=== PATIENT | male | born 1930 | race Caucasian/White ===

== ENCOUNTER → 2019-01-15 | Outpatient (CLI) | payer MEDICARE, BC ==
[2019-01-15 12:18] LABS: BASOPHILS PERCENT AUTO 1 % (0-2); EOSINOPHILS ABSOLUTE AUTO 1.33 K/mm3 (0.00-0.68); EOSINOPHILS PERCENT AUTO 12 % (0-6); Hematocrit 43.5 % (37.0-53.0); Hemoglobin 14.3 g/dL (13.5-17.5); IMMATURE GRAN ABSOLUTE AUTO 0.03 K/mm3 (0.00-0.10); IMMATURE GRAN PERCENT AUTO 0 % (0-1); LYMPHOCYTES ABSOLUTE AUTO 2.33 K/mm3 (0.84-5.20); LYMPHOCYTES PERCENT AUTO 20 % (21-46); MONOCYTES ABSOLUTE AUTO 1.09 K/mm3 (0.16-1.47); MONOCYTES PERCENT AUTO 10 % (4-13); Mean Corpuscular HGB 29.7 pg (26.0-34.0); Mean Corpuscular HGB Conc 32.9 g/dL (31.5-36.5); Mean Corpuscular Volume 90 fL (80-100); Mean Platelet Volume 9.3 fL (9.1-12.4); NEUTROPHILS ABSOLUTE AUTO 6.52 K/mm3 (1.96-9.15); NEUTROPHILS PERCENT AUTO 57 % (41-73); Platelet Count 297 K/mm3 (150-400); RDW Coefficient Variation 13.1 % (11.7-14.2); RDW Standard Deviation 42.6 fL (35.1-46.3); Red Blood Cell Count 4.82 M/mm3 (4.30-5.90)
[2019-01-15 12:34] LABS: Bun/Creatinine Ratio 13.5 (12.0-20.0); Calcium, Blood 9.3 mg/dL (8.5-10.1); Creatinine, Blood 1.41 mg/dL (0.60-1.20); Potassium, Blood 4.6 mmol/L (3.5-5.5); Thyroid Stimulating Hormone 2.694 uIU/mL (0.360-4.800); Troponin I 0.023 ng/mL (0.000-0.040)
== END | disposition home or self-care (01) ==
LOC: LAB EV 12:02 → LAB SHORT 12:02
PROVIDERS: Physician Assistant Surgical
DX: R06.00 Dyspnea, unspecified (principal); R53.83 Other fatigue; R05 Cough
CPT/HCPCS: 80048; 83880; 84443; 84484; 85025; 87070; 87205

== ENCOUNTER 2021-02-14 10:48 | Emergency (ER) | payer OTHER, BC ==
[~2021-02-14] VITALS: Ht 182.9 cm; Wt 92.5 kg
[2021-02-14 11:33] LABS: BASOPHILS ABSOLUTE AUTO 0.05 K/mm3 (0.00-0.23); BASOPHILS PERCENT AUTO 0 % (0-2); EOSINOPHILS ABSOLUTE AUTO 0.11 K/mm3 (0.00-0.68); EOSINOPHILS PERCENT AUTO 1 % (0-6); Hematocrit 36.4 % (37.0-53.0); Hemoglobin 12.1 g/dL (13.5-17.5); IMMATURE GRAN ABSOLUTE AUTO 0.07 K/mm3 (0.00-0.10); IMMATURE GRAN PERCENT AUTO 1 % (0-1); LYMPHOCYTES ABSOLUTE AUTO 0.99 K/mm3 (0.84-5.20); LYMPHOCYTES PERCENT AUTO 9 % (21-46); MONOCYTES ABSOLUTE AUTO 1.04 K/mm3 (0.16-1.47); MONOCYTES PERCENT AUTO 9 % (4-13); Mean Corpuscular HGB 30.3 pg (26.0-34.0); Mean Corpuscular HGB Conc 33.2 g/dL (31.5-36.5); Mean Corpuscular Volume 91 fL (80-100); Mean Platelet Volume 9.4 fL (9.1-12.4); NEUTROPHILS ABSOLUTE AUTO 9.19 K/mm3 (1.96-9.15); NEUTROPHILS PERCENT AUTO 80 % (41-73); Platelet Count 223 K/mm3 (150-400); RDW Coefficient Variation 12.9 % (11.7-14.2); RDW Standard Deviation 42.5 fL (35.1-46.3); White Blood Cell Count 11.45 K/mm3 (4.00-11.30)
[2021-02-14] MEDS ORDERED: LANOXIN125 MCG PO (11:43)
[2021-02-14] MEDS ORDERED: L-ARGININE500 MG PO (11:49)
[2021-02-14] MEDS ORDERED: VIT1CAPS12 PO (11:49)
[2021-02-14] MEDS ORDERED: DAILY-VITE1 EAC1 PO (11:50)
[2021-02-14] MEDS ORDERED: VITAMIN D5000 UNIT PO (11:50)
[2021-02-14] MEDS ORDERED: GABA100 PO (11:51)
[2021-02-14] MEDS ORDERED: PROAIR DIGIHAL90 MCG INH (11:52)
[2021-02-14] MEDS ORDERED: ANORO ELLIPTA1 EACH INH (11:53)
[2021-02-14] MEDS ORDERED: IPRAT-ALBUT 0.5-3 ML INH (11:53)
[2021-02-14 11:58] LABS: Alanine Aminotransfer (ALT/SGP 21 U/L (12-78); Albumin, Blood 2.8 g/dL (3.4-5.0); Albumin/Globulin Ratio 0.7 (0.8-1.8); Alk Phos 71 U/L (50-136); Anion Gap 4 mmol/L (6-16); Aspartate Aminotrans (AST/SGOT 24 U/L (12-37); Bilirubin, Total 0.6 mg/dL (0.1-1.0); Blood Urea Nitrogen 28 mg/dL (8-24); CO2, Blood 24 mmol/L (21-32); Calcium, Blood 8.8 mg/dL (8.5-10.1); Chloride, Blood 109 mmol/L (98-108); Creatinine, Blood 1.47 mg/dL (0.60-1.20); Globulin, Blood 4.3 g/dL (2.2-4.0); Glomerular Filtration Rate 45 (60-); Glucose, Blood 136 mg/dL (70-99); Potassium, Blood 3.9 mmol/L (3.5-5.5); Sodium, Blood 137 mmol/L (136-145); Total Protein, Blood 7.1 g/dL (6.4-8.2); Troponin I <0.015 ng/mL (0.000-0.040)
[2021-02-14] MEDS ORDERED: LIOT5 PO (12:08)
[2021-02-14] MEDS ORDERED: EUTHYROX88 MCG PO (12:09)
[2021-02-14] MEDS ORDERED: CARV6.25 PO (12:09)
[2021-02-14] MEDS ORDERED: ELIQUIS5 M2 PO (12:10)
[2021-02-14] MEDS ORDERED: ARMOUR THYROID120 M1 PO (12:10)
[2021-02-14] MEDS ORDERED: Flonase 0.05% N16 GM (12:11)
[2021-02-14] MEDS ORDERED: CLOBETASOL EMOL15 G1 TOP (12:11)
[2021-02-14] MEDS ORDERED: DEXA2 PO (12:18)
== END 2021-02-14 14:05 | disposition home or self-care (01) ==
LOC: ER 10:48
PROVIDERS: Physician Assistant
DX: U07.1 COVID-19 (principal); J12.82 Pneumonia due to coronavirus disease 2019; J43.9 Emphysema, unspecified; I10 Essential (primary) hypertension; Z86.16 Personal history of COVID-19; Z79.899 Other long term (current) drug therapy; Z79.01 Long term (current) use of anticoagulants
CPT/HCPCS: 36415; 71045; 80053; 84484; 85025; 93005; 93010; 96374; 96375; 99285-25; J1100; J1200; M0243; Q0243

== ENCOUNTER 2022-07-17 17:52 | Inpatient (IN) | payer OTHER, BC ==
[~2022-07-17] VITALS: Ht 180.3 cm; Wt 82.4 kg
[~2022-07-17 17:52] MED LIST: ACET325 PO; ANORO ELLIPTA1 EACH INH; ARMOUR THYROID120 M1 PO; CARV6.25 PO; CEFD300 PO; CLOBETASOL EMOL15 G1 TOP; DAILY-VITE1 EAC1 PO; DECADRON6 M1 PO; DEXA2 PO; ELIQUIS5 M2 PO; EUTHYROX88 MCG PO; Flonase 0.05% N16 GM; GABA100 PO; IPRAT-ALBUT 0.5-3 ML INH; L-ARGININE500 MG PO; LANOXIN125 MCG PO; LIOT5 PO; OCUVITE BLUE L1 EACH PO; PROAIR DIGIHAL90 MCG INH; TAMS.4ER PO; VIT1CAPS12 PO; VITAMIN D5000 UNIT PO
[2022-07-17 18:50] LABS: BASOPHILS ABSOLUTE AUTO 0.02 K/mm3 (0.00-0.23); BASOPHILS PERCENT AUTO 0 % (0-2); EOSINOPHILS ABSOLUTE AUTO 0.07 K/mm3 (0.00-0.68); EOSINOPHILS PERCENT AUTO 0 % (0-6); Hematocrit 44.3 % (37.0-53.0); Hemoglobin 15.1 g/dL (13.5-17.5); IMMATURE GRAN ABSOLUTE AUTO 0.12 K/mm3 (0.00-0.10); IMMATURE GRAN PERCENT AUTO 1 % (0-1); LYMPHOCYTES ABSOLUTE AUTO 0.99 K/mm3 (0.84-5.20); LYMPHOCYTES PERCENT AUTO 6 % (21-46); MONOCYTES ABSOLUTE AUTO 0.67 K/mm3 (0.16-1.47); MONOCYTES PERCENT AUTO 4 % (4-13); Mean Corpuscular HGB 30.1 pg (26.0-34.0); Mean Corpuscular HGB Conc 34.1 g/dL (31.5-36.5); Mean Corpuscular Volume 88 fL (80-100); Mean Platelet Volume 9.7 fL (9.1-12.4); NEUTROPHILS ABSOLUTE AUTO 13.86 K/mm3 (1.96-9.15); NEUTROPHILS PERCENT AUTO 88 % (41-73); Platelet Count 302 K/mm3 (150-400); RDW Coefficient Variation 13.2 % (11.7-14.2); RDW Standard Deviation 42.9 fL (35.1-46.3); Red Blood Cell Count 5.02 M/mm3 (4.30-5.90); White Blood Cell Count 15.73 K/mm3 (4.00-11.30)
[2022-07-17 19:10] LABS: Albumin, Blood 2.6 g/dL (3.4-5.0); Albumin/Globulin Ratio 0.7 (0.8-1.8); Bilirubin, Total 0.8 mg/dL (0.1-1.0); Bun/Creatinine Ratio 32.9 (12.0-20.0); Calcium, Blood 14.3 mg/dL (8.5-10.1); Creatinine, Blood 1.67 mg/dL (0.60-1.20); Globulin, Blood 3.5 g/dL (2.2-4.0); Potassium, Blood 3.8 mmol/L (3.5-5.5); Total Protein, Blood 6.1 g/dL (6.4-8.2)
[2022-07-17 21:58] LABS: Source, Urine Clean Catch
[2022-07-17 22:02] LABS: Appearance, Urine Clear (Clear); Bilirubin, Urine Neg (Neg); Blood, Urine Neg (Neg); Color, Urine Yellow (P-Yellow); Glucose Qualitative, Urine Neg (Neg); Ketones, Urine Neg (Neg); Leukocyte Esterase, Urine Neg (Neg); Nitrite, Urine Neg (Neg); Protein, Urine 1+ (Neg); Urobilinogen, Urine NORM (Normal)
[2022-07-17 23:05] LABS: Influenza A, PCR NEGATIVE (NEGATIVE); Influenza B, PCR NEGATIVE (NEGATIVE); Resp Syncytial Virus, PCR NEGATIVE (NEGATIVE)
[2022-07-17 23:11] LABS: SARS-Cov-2 (COVID-19) PCR, MMC POSITIVE (NEGATIVE)
[2022-07-17 23:54] LABS: Anti-Xa UFH, PHA Monitoring 0.26 IU/mL; International Normalized Ratio 1.09; Prothrombin Time Results 11.4 Sec (9.7-11.5)
--- NOTE | 2022-07-18 05:41 | NUR ---
RECIEVED PATIENT FROM ED, ALERT AND ORIENTED X4, WITHDRAWN AND STATES HE JUSTS WANTS ALL OF THIS TO BE OVER, AND WANT TO BE WITH HIS IN HEAVEN. THIS DIRECTOR FOOD SAFETY ATTEMPTED TO DISCUSS HIS CODE STATUS, PATIENT STATES "TALK TO MY DAUGHTER, YOU DO WHAT YOU NEED TO DO." RECIEVED MULTI CALLS FROM [facility] RE TWO 2.5 SEC PAUSES, BRADYCARDIA, AND AFIB. PER MD ORDER, PATIENT TRANSFERED TO PCU. SMALL SKIN TEARS NOTED ON COCCYX AND UNDER L BUTTOCKS. LUNGS ARE DIM, CRACKLES TO R SIDE. EDEMA TO BLE. HEPDRIP AND NS INFUSING ON TRANSFER. REFUSED CPAP. NO OTHER ISSUES TO REPORT.
[2022-07-18 06:02] LABS: Digoxin (Lanoxin) 0.65 ug/mL (0.80-2.00)
[2022-07-18 06:03] LABS: Anion Gap 2 mmol/L (6-16); Blood Urea Nitrogen 54 mg/dL (8-24); Bun/Creatinine Ratio 34.8 (12.0-20.0); CO2, Blood 33 mmol/L (21-32); Chloride, Blood 107 mmol/L (98-108); Creatinine, Blood 1.55 mg/dL (0.60-1.20); Glomerular Filtration Rate 43 (60-); Glucose, Blood 103 mg/dL (70-99); Sodium, Blood 142 mmol/L (136-145)
--- NOTE | 2022-07-18 06:05 | NUR ---
0500-PT TRANSFERRED FROM [facility] FLR, LETHARGIC BUT ANSWERES APPROPRIATELY AND FOLLOWS COMMANDS, AFIB ON TELE 30'S-60'S, AFEBRILE, RA, PT HAVING SHORT PERIODS OF APNEA WHILE MAINTAINING SATS, STATES HE DOESN'T KNOW WHEN QUESTIONED ABOUT HOME CPAP, DR MURRAY CALLED AND DIG LEVEL ORDERED 0547-B/P SOFT SYS IN 80'S, MAP 64, FREQUENT DROP'S IN HR TO THE 30'S, 0.5 OF ATROPINE GIVEN 0600-B/P 80/44, DR MURRAY NOTIFIED, 500 CC BOLUS INITIATED
[2022-07-18] MEDS ORDERED: DELTASONE20 MG PO (09:43)
[2022-07-18] MEDS ORDERED: DULO30 PO (09:44)
--- NOTE | 2022-07-18 14:48 | NUR ---
REPORT GIVEN TO JENNIFER PARRA. PT CODE STATUS CHANGED TO DNR PER PALLIATIVE CARE NURSE, COPY OF ADVANCE DIRECTIVE IN THE CHART, DAUGHTER LADAN WAS INFORMED WELL, GRANDSON AND FIANCE AT THE BEDSIDE AWARE OF THE PLAN WELL. FAMILY WANTS TO WAIT TIL WEDNESDAY TO SEE IF PT'S IMPROVE THEN CONSIDER TRANSITIONING PT TO HOSPICE. PT ALERT AND ORIENTED X3, HAS SOME CONFUSION BUT ANSWERS QUESTIONS WITHOUT DIFFICULTY, PT INCONTINENT OF BOWEL AND BLADDER, RECEIVED A BED BATH THIS MORNING, REPOSITIONED Q2 HRS. VITALS HRR AFIB 60-70'S, SBP 110-120'S, SATS ABOVE 93% ON RA, AFEBRILE. PT DENIES ANY PAIN BUT COMPLAINS OF WEAKNESS, PT/OT ORDERED. PT TOLERATING PO FOOD AND FLUIDS, HAS COUGHING EPISODES IF PT USES STRAWS PT STATED HE DOESNT LIKE COLD WATER DUE TO SORE THROAT. INSTRUCTED PT TO TAKE SMALL SIPS OF WARM WATER WITHOUT STRAW. PT AGREED. HEPARIN GTT NOW RUNNING AT 15U/KG/HR, NS AT 125MLS/HR. NO OTHER ISSUES ENCOUNTERED AT THIS TIME. WILL MONITOR
--- NOTE | 2022-07-18 15:57 | NUR ---
Met with nursing and pt. He is alert but slow able to express some needs. Put his glasses on and put tv on for him. Review of his advance directive pt wants treatment just no life support. Spoke with daughter who is ill with covid. She relays it is getting harder to care for him and his situation is becoming unsafe. We reviewed his va benefits. Advised her I will update care management assistant on his needs. They are hoping to get him to rehab and if he does not do well may consider hospice. Review this plan iwth grand son and DNR. Will follow up.
--- NOTE | 2022-07-18 18:12 | NUR ---
SHIFT SUMMARY ASSUMED CARE ARPOX 1500. PT RESTING QUIETLY IN BED, FAMILY AT BEDSIDE. PT HAS BECOME MORE CONFUSED THE EVENING PROGRESSED, NEEDS FREQUENT REMINDERS NOT TO PULL ON LINES/WIRES. NO ACUTE CHANGES NOTED. BED ALARM ON FOR SAFETY, CALL LIGHT IN REACH, WILL CONTINUE TO MONITOR AND GIVE REPORT TO NOC SHIFT RN.
[2022-07-19 06:08] LABS: BASOPHILS ABSOLUTE AUTO 0.02 K/mm3 (0.00-0.23); BASOPHILS PERCENT AUTO 0 % (0-2); EOSINOPHILS ABSOLUTE AUTO 0.35 K/mm3 (0.00-0.68); EOSINOPHILS PERCENT AUTO 2 % (0-6); Hematocrit 42.9 % (37.0-53.0); IMMATURE GRAN ABSOLUTE AUTO 0.11 K/mm3 (0.00-0.10); IMMATURE GRAN PERCENT AUTO 1 % (0-1); LYMPHOCYTES ABSOLUTE AUTO 1.03 K/mm3 (0.84-5.20); LYMPHOCYTES PERCENT AUTO 7 % (21-46); MONOCYTES ABSOLUTE AUTO 0.71 K/mm3 (0.16-1.47); MONOCYTES PERCENT AUTO 5 % (4-13); Mean Corpuscular HGB 30.4 pg (26.0-34.0); Mean Corpuscular Volume 87 fL (80-100); Mean Platelet Volume 9.5 fL (9.1-12.4); NEUTROPHILS PERCENT AUTO 86 % (41-73); Platelet Count 293 K/mm3 (150-400); RDW Coefficient Variation 13.2 % (11.7-14.2); RDW Standard Deviation 41.8 fL (35.1-46.3); Red Blood Cell Count 4.93 M/mm3 (4.30-5.90); White Blood Cell Count 15.32 K/mm3 (4.00-11.30)
--- NOTE | 2022-07-19 06:23 | NUR ---
SHIFT SUMMARY PT ORIENTED TO SELF, PLACE, AND PERSON; UNABLE TO RECALL SITUATION, DATE/TIME. PT MUCH MORE ALERT AND INTERACTIVE, AT TIMES SPEECH IS DIFFICULT TO UNDERSTAND D/T MUMBLING. BUT PT IS ANSWERING QUESTIONS MOSTLY APPROPRIATE. VSS THROUGHOUT SHIFT; ALTHOUGH SBP SOFT IN 100'S, MAP >65. HR REMAINS A-FIB IN 60'S. PT ON 1 - 2 PRN; PT ON 2 L WHILE SLEEPING. PT DID HAVE ONE INCIDENT OF PULLING OFF TELEMETRY STICKERS, SPO2 PROBE AND PULLED AN IV OUT. PT WAS ABLE TO BE REORIENTED AND SINCE THAT EVENT DID NOT PULL AT ANYTHING ELSE THROUGHOUT THE NIGHT. PT USED URINAL X2 AND WAS ABLE TO VERBALIZE HIS NEED TO VOID. HEPARIN GTT INFUSING PER EMAR. CALL LIGHT IN REACH. WILL UPDATE ONCOMING RN
[2022-07-19 06:25] LABS: Albumin, Blood 2.5 g/dL (3.4-5.0); Anion Gap 3 mmol/L (6-16); Blood Urea Nitrogen 42 mg/dL (8-24); Bun/Creatinine Ratio 30.4 (12.0-20.0); CO2, Blood 31 mmol/L (21-32); Calcium, Blood 13.4 mg/dL (8.5-10.1); Chloride, Blood 110 mmol/L (98-108); Creatinine, Blood 1.38 mg/dL (0.60-1.20); Glomerular Filtration Rate 49 (60-); Glucose, Blood 90 mg/dL (70-99); Phosphorus, Blood 3.1 mg/dL (2.5-4.9); Potassium, Blood 3.3 mmol/L (3.5-5.5); Sodium, Blood 144 mmol/L (136-145)
[2022-07-19 10:16] LABS: Free Thyroxine 1.15 ng/dL (0.70-1.60); Triiodothyronine, Free 1.28 pg/mL (2.18-3.98)
--- NOTE | 2022-07-19 14:15 | NUR ---
PT BLOOD PRESSURE HAS BEEN LOW SINCE THIS MORNING VERIFIED BY MANUAL BP SBP 70-90'S MAP <65, PT WAS GIVEN BOLUS 500MLS WITH NO IMPROVEMENT N BLOOD PRESSURE THEN ANOTHER BOLUS AT AROUND 11AM WITH ONE DOSE OF PO MIDODRINE STILL WITH NO IMPROVEMENT. HRR AFIB 60-80'S,SATS ABOVE 90% ON 2L OF O2, AFEBRILE. PT REMAINS ALERT AND ORIENTED X3, LETHARGIC. MUMBLES WHEN TALKING UPON WAKING UP CAN ANSWER QUESTIONS APPROPRIATELY BUT HAS EPISODES OF DELIRIUM PT WILL RAISE HAND UP IF GRABBING SOMETHING IN THE AIR, PER GRANDSON HAS SOME HALLUCINATION WELL LIKE SEEING SOMEBODY IN THE ROOM. ELHAM MANAGER LICENSING NURSE HAD CONVERSATION WITH THE GRANDSON, ALSO DAUGHTER CAME IN THIS RN DISCUSS PT'S CURRENT SITUATION AND GIVE UPDATES. FAMILY AGREED TO TAKE PT TO ICU FOR PRESSORS. BLOOD WORK FOR SEPSIS AND CHEST XRAY DONE PRIOR TO SENDING PT TO ICU. ALL BELONGINGS SENT WITH THE PT
--- NOTE | 2022-07-19 14:24 | NUR ---
PT ADMITTED TO ICU FROM PCU AT 1410 FOR HYPOTENSION. PT AWAKE, DROWSY. DENIES C/O PAIN/SOB. SATS 98% ON 2L O2 VIA N/C. PT HAS URGENCY TO VOID BUT IS UNABLE TO DO SO, AWAITING BLADDER SCANNER. PT HYPOTENSIVE W MAP >65, LEVOPHED STARTED AT 2MCG. HEPARIN GTT PLACED ON HOLD AT 1410 PER PHARMACY. TO BE RESTARTED AT 1510 AT 12UNITS.
[2022-07-19 15:34] LABS: Source, Urine Foley catheter
[2022-07-19 15:37] LABS: Appearance, Urine Clear (Clear); Bilirubin, Urine Neg (Neg); Blood, Urine 2+ (Neg); Glucose Qualitative, Urine Neg (Neg); Ketones, Urine Neg (Neg); Leukocyte Esterase, Urine Neg (Neg); Nitrite, Urine Neg (Neg); Protein, Urine Neg (Neg); Specific Gravity, Urine 1.015 (1.003-1.022); Urobilinogen, Urine NORM (Normal)
[2022-07-19 15:43] LABS: Color, Urine Pale Yellow (P-Yellow)
[2022-07-19 15:47] LABS: Bacteria Few /hpf; Squamous Epithelial Cells Rare /hpf (Few); White Blood Cells, Urine 0-2 /hpf (0-5)
--- NOTE | 2022-07-19 17:26 | NUR ---
PT WOKE UP VERY CONFUSED AND AFRAID/ANXIOUS. PT THOUGHT HE WAS IN A GARAGE AND DIDNT REMEMBER TRANSFERING TO ICU. PT REASSURED, WARM BLANKETS GIVEN. 16F SKINNER TEMP CATH WAS PLACED ON ADMIT FOR RETENTION. PICC PLACED TO [facility]; PT'S DAUGHTER CONSENTED. LEVOPHED IS DOWN TO 1MCG. HEPARIN AT 12UNITS. DR WELLS CALLED AND UPDATED SHORTLY AFTER ADMIT. DR RIZVI CALLED CALLED AT 1600 TO GIVE UPDATE, ORDERS TO INCREASE NS TO 150CC/HR AND HOLD TONIGHTS LASIX.
--- NOTE | 2022-07-19 18:14 | NUR ---
pot resting more alert. being in the hospital has been very stressful for him. will continue to monitor
[2022-07-20 03:29] LABS: BASOPHILS ABSOLUTE AUTO 0.02 K/mm3 (0.00-0.23); BASOPHILS PERCENT AUTO 0 % (0-2); EOSINOPHILS ABSOLUTE AUTO 0.33 K/mm3 (0.00-0.68); EOSINOPHILS PERCENT AUTO 3 % (0-6); Hematocrit 35.9 % (37.0-53.0); Hemoglobin 12.6 g/dL (13.5-17.5); IMMATURE GRAN PERCENT AUTO 1 % (0-1); LYMPHOCYTES ABSOLUTE AUTO 0.97 K/mm3 (0.84-5.20); LYMPHOCYTES PERCENT AUTO 9 % (21-46); MONOCYTES ABSOLUTE AUTO 0.62 K/mm3 (0.16-1.47); MONOCYTES PERCENT AUTO 6 % (4-13); Mean Corpuscular HGB 30.7 pg (26.0-34.0); Mean Corpuscular HGB Conc 35.1 g/dL (31.5-36.5); Mean Corpuscular Volume 88 fL (80-100); Mean Platelet Volume 9.5 fL (9.1-12.4); NEUTROPHILS ABSOLUTE AUTO 9.31 K/mm3 (1.96-9.15); NEUTROPHILS PERCENT AUTO 82 % (41-73); Platelet Count 234 K/mm3 (150-400); RDW Coefficient Variation 13.2 % (11.7-14.2); RDW Standard Deviation 42.5 fL (35.1-46.3); White Blood Cell Count 11.35 K/mm3 (4.00-11.30)
[2022-07-20 03:45] LABS: Anion Gap 3 mmol/L (6-16); Blood Urea Nitrogen 33 mg/dL (8-24); Bun/Creatinine Ratio 24.3 (12.0-20.0); CO2, Blood 28 mmol/L (21-32); Calcium, Blood 11.9 mg/dL (8.5-10.1); Chloride, Blood 114 mmol/L (98-108); Creatinine, Blood 1.36 mg/dL (0.60-1.20); Glomerular Filtration Rate 50 (60-); Glucose, Blood 105 mg/dL (70-99); Phosphorus, Blood 2.2 mg/dL (2.5-4.9); Potassium, Blood 3.2 mmol/L (3.5-5.5); Sodium, Blood 145 mmol/L (136-145)
--- NOTE | 2022-07-20 06:27 | NUR ---
PATIENT BEGAN THE SHIFT AOX3. BECAME INCREASINGLY CONFUSED AND IRRITABLE OVERNIGHT TO AOX1. MENTATION AND MOOD IMPROVING BY 0615. AFIB WITH STABLE BP. LEVOPHED REMAINS OFF. NC 3L. PATIENT HAS LOW APPEITITE. SKINNER IN PLACE AND PATENT. HEPARIN AND NS GTT INFUSING.
--- NOTE | 2022-07-20 08:55 | NUR ---
ASSUMED CARE REPORT FROM NEYDA RN AT 0700. PT ALERT, LAYING IN BED. A&XO3. PARANOID, THINKS HIS DAUGHTER HAD HIM TRANSFERRED TO ICU SO THAT SHE WOULD STEAL HIS MONEY. STATES HE WANTS TO GO HOME. REPORTS SOB. SPEAKING IN FULL SENTENCES. LUNGS CLEAR, DIM IN BASES. NO COUGH NOTED. 3L VIA NC, O2 SATS >95%. AFIB, RATE 90'S. BP STABLE. HEPARIN GTT, NS AT 100 ML/HR AND KPHOS INFUSING. PICC TO LUE, DRESSING C/D/I. ABD ROUND, SOFT, NON TENDER. GOOD APPETITE THIS AM. SKINNER PATENT, DRAINING CLEAR YELLOW URINE TO GRAVITY. PT STATED HE NEED TO HAVE A BM, STATES HE USES CANE AND WALKER AT HOME, PT UNABLE TO STAND c TWO PERSON ASSIST AND WALKER. DR BORREGO ROUNDED. PT STATUS CHANGED TO MED c TELE. WILL CONTINUE TO MONITOR UNTIL TRANSFER.
--- NOTE | 2022-07-20 14:20 | NUR ---
SHIFT SUMMARY/TRANSFER TO ICU PT REMAINS A&OX 3 BUT HAS PARANOID AND REPETATIVE QUESTIONS. STATES DOC TOLD HIM THAT HE COULD GO THIS AM. TRIED TO REORIENT SEVERAL TIMES. ONLY STOPPED ASKING ABOUT D/C AFTER PT WORKED c HIM AND HE WAS UNABLE TO STAND. FOLLOWS SIMPLE COMMANDS. OCCASIONALLY IMPULSIVE. LUNGS DIM, 3L VIA NC, O2 SATS >95%. AFIB, RATE 80'S. BP STABLE. NS AND HEPARIN GTT CONTINUE. GOOD APPETITE. DAUGHTER VISITED, PT ESCALATED, ACCUSING HER OF STEALING MONEY. WILL CONTINUE TO MONITOR UNTIL TRANSFER TO MEDICAL FLOOR.
--- NOTE | 2022-07-20 15:06 | NUR ---
TRANSFER TO MEDICAL FLOOR REPORT TO PAUL PARRA. ALL BELONGINGS SENT c PT. PT TO ROOM 347.
--- NOTE | 2022-07-20 15:35 | NUR ---
NURSE NOTE PATIENT ARRIVED TO MEDICAL FLOOR FROM ICU 3. HEPARIN RESTARTED AND IV FLUIDS RESTARTED.
--- NOTE | 2022-07-20 16:31 | NUR ---
SHIFT SUMMARY PATIENT IS ALERT BUT CONFUSED. PATIENT IS INSISTENT ON GOING HOME. PATIENT HAS HAD NO ACUTE EVENTS SINCE ARRIVAL FROM ICU3. VITAL SIGNS REVIEWED. BED IN LOWEST AND LOCKED POSITION. CALL LIGHT IN PLACE.
--- NOTE | 2022-07-20 18:28 | NUR ---
spoke with family about pt care needs. They are having a rough day with his forgetfulness and decline in cognigtion. pt able with some time and reorintation follow conversation better. discussed with family that they are going to have to plan for his decline. daughter is looking at getting assited living.
--- NOTE | 2022-07-21 04:13 | NUR ---
SHIFT SUMMARY; PT HAS BEEN VERY CONFUSED THIS EVENING. THE PT HAS BEEN PULLING AT SKINNER AND PULLING OFF TELE PATCHES ALL NIGHT LONG. THE PT HAS STILL NOT WENT TO SLEEP YET FOR THE NIGHT OF 0400. THE PT IS AGGITATED BY STAFF AND ASK US TO LEAVE HIS ROOM EACH TIME WE ENTER HIS ROOM. THE PT HAS BEEN PICKING AT HIS BOTTOM LIP WHICH WAS PREVIOUSLY SCABBED OVER WELL. THE BOTTOM LIP IS NOW BLEEDING AND HAS DRIED BLOOD. I CALLED TO SEE IF WE COULD MEDICATE THE PT IN ATTEMPT TO CALM HIM DOWN AND KEEP HIM FROM CONTINUALLY TRYING TO GET UP AND PULLING AT HIS SKINNER/TELE. HE GAVE ME AN ORDER FOR 3MG OF MELATONIN AND 25MG OF SEROQUEL, THOSE MEDICATIONS SEEMED TO HAVE NO EFFECT ON THE PT. TELE IS IN PLACE, A-FIB RANGING FROM 80-100'S. THE PT HAS 4L NC ON WITH O2 SATS GREATER THAN 92%. THE PT DENIES ANY PAIN, CHEST PAIN/PRESSURE OR N/V. THE PTS SKINNER IS PATENT AND DRAINING TO GRAVITY. CURRENTLY THE PT IS FIDGETTING IN BED WITH THE BED IN THE LOWEST POSITION AND THE CALL LIGHT AT BEDSIDE.
[2022-07-21 06:17] LABS: BASOPHILS ABSOLUTE AUTO 0.03 K/mm3 (0.00-0.23); BASOPHILS PERCENT AUTO 0 % (0-2); EOSINOPHILS ABSOLUTE AUTO 0.32 K/mm3 (0.00-0.68); EOSINOPHILS PERCENT AUTO 3 % (0-6); Hematocrit 35.4 % (37.0-53.0); Hemoglobin 12.5 g/dL (13.5-17.5); IMMATURE GRAN ABSOLUTE AUTO 0.12 K/mm3 (0.00-0.10); IMMATURE GRAN PERCENT AUTO 1 % (0-1); LYMPHOCYTES ABSOLUTE AUTO 0.76 K/mm3 (0.84-5.20); LYMPHOCYTES PERCENT AUTO 7 % (21-46); MONOCYTES ABSOLUTE AUTO 0.73 K/mm3 (0.16-1.47); MONOCYTES PERCENT AUTO 7 % (4-13); Mean Corpuscular HGB 30.3 pg (26.0-34.0); Mean Corpuscular HGB Conc 35.3 g/dL (31.5-36.5); Mean Corpuscular Volume 86 fL (80-100); Mean Platelet Volume 9.5 fL (9.1-12.4); NEUTROPHILS ABSOLUTE AUTO 9.08 K/mm3 (1.96-9.15); NEUTROPHILS PERCENT AUTO 82 % (41-73); Platelet Count 224 K/mm3 (150-400); RDW Coefficient Variation 13.2 % (11.7-14.2); RDW Standard Deviation 41.1 fL (35.1-46.3); Red Blood Cell Count 4.12 M/mm3 (4.30-5.90); White Blood Cell Count 11.04 K/mm3 (4.00-11.30)
[2022-07-21 06:30] LABS: Albumin, Blood 2.2 g/dL (3.4-5.0); Anion Gap 1 mmol/L (6-16); Blood Urea Nitrogen 27 mg/dL (8-24); Bun/Creatinine Ratio 18.8 (12.0-20.0); CO2, Blood 31 mmol/L (21-32); Calcium, Blood 12.6 mg/dL (8.5-10.1); Chloride, Blood 112 mmol/L (98-108); Creatinine, Blood 1.44 mg/dL (0.60-1.20); Glomerular Filtration Rate 46 (60-); Glucose, Blood 98 mg/dL (70-99); Phosphorus, Blood 2.6 mg/dL (2.5-4.9); Potassium, Blood 3.6 mmol/L (3.5-5.5); Sodium, Blood 144 mmol/L (136-145)
--- NOTE | 2022-07-21 10:53 | NUR ---
pt had to get medications for aggitation last night. somulent this morning. Family struggling with his decline. They are wanting to connect with the Va and look a his reahb potential so they can make a plan.
--- NOTE | 2022-07-21 17:24 | NUR ---
SHIFT SUMMARY PT SLEEPING MOST OF THE SHIFT, ABLE TO AROUSE TO TAKE AFTERNOON PO MEDICATION. TOLERATED WELL WITH APPLESAUCE. PT'S DAUGHTER IN LAW AT THE BS, INFORMED OF UPDATES. HEPARIN DRIP DC'D THIS SHIFT AND RESTARTED ON ELIQUIS. PT TENDS TO PICK AND HAVE SPASTIC MOVEMENTS. HE MUMBLES OFTEN, WELL. PT CURRENTLY ON 5 L NC, SATING >92. CALL LIGHT WITHIN REACH, BED IN LOWEST POSITION. WILL REPORT TO ONCOMING NURSE.
--- NOTE | 2022-07-22 05:08 | NUR ---
SHIFT SUMMARY PT CONTINUES TO BE LETHARGIC BUT WAKES EASILY TO VERBAL STIMULI. MEDICATIONS HELD D/T ASPIRATION RISK. NS RUNNING TO RODERICK PICC AT 100 ML/HR. TELE AFIB IN THE 60S. SPO2 >92% ON 3L NC. SKINNER PATENT AND DRAINING TO GRAVITY. VSS, BED IN LOWEST POSITION WITH CALL LIGHT IN REACH. WILL CONTINUE TO MONITOR AND REPORT TO ONCOMING RN.
[2022-07-22 07:14] LABS: Albumin, Blood 1.9 g/dL (3.4-5.0); Anion Gap 3 mmol/L (6-16); Blood Urea Nitrogen 27 mg/dL (8-24); Bun/Creatinine Ratio 19.7 (12.0-20.0); CO2, Blood 30 mmol/L (21-32); Calcium, Blood 11.7 mg/dL (8.5-10.1); Chloride, Blood 112 mmol/L (98-108); Creatinine, Blood 1.37 mg/dL (0.60-1.20); Glomerular Filtration Rate 49 (60-); Glucose, Blood 84 mg/dL (70-99); Phosphorus, Blood 3.3 mg/dL (2.5-4.9); Potassium, Blood 3.1 mmol/L (3.5-5.5); Sodium, Blood 145 mmol/L (136-145)
--- NOTE | 2022-07-22 13:33 | NUR ---
Care Conference: Spoke to pt's son in law today while calling for pt's daughter. Son in law reports major changes in pt over the past 6 months. He reports pt has lost a lot of his independence; and is increasingly incontinent, forgetting to shower, and forgetting his own basic self care. Plan to follow up with daughter, as he reports they have been discussing whether or not patient is reaching end of life. The pt has continued to make statements about "letting God take him", or "going to be with my ".
[2022-07-22 14:10] LABS: A/G RATIO 1.1 (0.7-1.7); ALBUMIN 2.8 g/dL (2.9-4.4); ALPHA-1-GLOBULIN 0.2 g/dL (0.0-0.4); ALPHA-2-GLOBULIN 0.8 g/dL (0.4-1.0); BETA GLOBULIN 0.7 g/dL (0.7-1.3); GAMMA GLOBULIN 0.8 g/dL (0.4-1.8); GLOBULIN, TOTAL 2.6 g/dL (2.2-3.9); M-SPIKE Not Observed g/dL (Not Observed); PROTEIN, TOTAL, SERUM 5.4 g/dL (6.0-8.5)
--- NOTE | 2022-07-22 17:45 | NUR ---
SHIFT SUMMARY PT AOX1-2, MORE ALERT THIS SHIFT. HE HAS BEEN SLEEPING OFF AND ON BUT IS AROUSABLE. HIS FAMILY HAS BEEN AT THE BS THIS SHIFT. HE RECEIVED ORAL CARE MULTIPLE TIMES DUE HIM C/O WANTING TO DRINK WATER. ST DID AN EVAL AND THOSE INSTRUCTIONS ARE POSTED OUTSIDE OF THE PT'S DOOR. STILL AWAITING FAMILY DECISION ABOUT POST DISCHARGE CARE. BED LIGHT IN THE LOWEST POSITION, CALL LIGHT WITHIN REACH. WILL REPORT TO ONCOMING NURSE.
--- NOTE | 2022-07-23 05:27 | NUR ---
PAN PUSHER SUMMARY PT IS ORIENTED TO SELF WITH MOMENTS OF CLARITY AND MOMENTS OF EXTREME CONFUSION. PT HAS BEEN WAKEFUL INTERMITTANTLY T/O THE NIGHT. PT WILL NOT USE CALL LIGHT BUT CALL OUT VOCALLY; HIS VOICE IS SOFT, WEAK, AND DIFFICULT TO UNDERSTAND. PT MAKING STATEMENTS REPEATEDLY, "I DON'T WANT TO LIVE LIKE THIS" "I WANT TO GO BE WITH MY " PT DOES NOT UNDERSTAND WHY HE CAN'T EAT/DRINK. PT EDUCATION ON CURRENT ILLNESS AND REASON FOR NPO STATUS. PT ANXIOUS ABOUT NOT EATING/DRINKING. PT PULLED RIGHT UPPER ARM PICC LINE; PRESSURE AND BANDAGE APPLIED; NO BLEEDING AT THE SITE; CATHETER INTACT. NS FLUIDS INFUSING IN LEFT FA IV. PT REMAINS ON 4L02 NC. RT AT BEDSIDE TO SET UP CPAP; PT TOLERATED FOR A FEW HOURS AND THEN PULLED MASK. CONT PULSE OX--SATURATIONS HAVE BEEN CONSISTANTLY >90%. PT HAS SKINNER IN PLACE, PATENT, DRAINING TO GRAVITY. PT ABLE TO TOLERATE MEDS CRUSHED IN APPLESAUCE AT 90 DEGREES UPRIGHT. PT SWALLOW IS WEAK AND PRESSURED. BED ALARM IN PLACE. THIS NURSE STATION NEXT TO ROOM. WORKED WITH AID TO TURN Q2. PT C/O OF PAIN IN BUTTOCK/LOWER BACK.
[2022-07-23 06:27] LABS: BASOPHILS ABSOLUTE AUTO 0.04 K/mm3 (0.00-0.23); BASOPHILS PERCENT AUTO 0 % (0-2); EOSINOPHILS ABSOLUTE AUTO 0.17 K/mm3 (0.00-0.68); EOSINOPHILS PERCENT AUTO 2 % (0-6); Hematocrit 38.6 % (37.0-53.0); IMMATURE GRAN ABSOLUTE AUTO 0.12 K/mm3 (0.00-0.10); IMMATURE GRAN PERCENT AUTO 1 % (0-1); LYMPHOCYTES ABSOLUTE AUTO 0.94 K/mm3 (0.84-5.20); LYMPHOCYTES PERCENT AUTO 9 % (21-46); MONOCYTES ABSOLUTE AUTO 0.65 K/mm3 (0.16-1.47); MONOCYTES PERCENT AUTO 6 % (4-13); Mean Corpuscular HGB 30.4 pg (26.0-34.0); Mean Corpuscular HGB Conc 33.7 g/dL (31.5-36.5); Mean Corpuscular Volume 90 fL (80-100); Mean Platelet Volume 9.8 fL (9.1-12.4); NEUTROPHILS ABSOLUTE AUTO 9.09 K/mm3 (1.96-9.15); NEUTROPHILS PERCENT AUTO 83 % (41-73); Platelet Count 222 K/mm3 (150-400); RDW Coefficient Variation 13.7 % (11.7-14.2); RDW Standard Deviation 44.7 fL (35.1-46.3); Red Blood Cell Count 4.28 M/mm3 (4.30-5.90); White Blood Cell Count 11.01 K/mm3 (4.00-11.30)
[2022-07-23 06:55] LABS: Anion Gap 4 mmol/L (6-16); Blood Urea Nitrogen 34 mg/dL (8-24); Bun/Creatinine Ratio 21.4 (12.0-20.0); CO2, Blood 29 mmol/L (21-32); Calcium, Blood 12.3 mg/dL (8.5-10.1); Chloride, Blood 114 mmol/L (98-108); Creatinine, Blood 1.59 mg/dL (0.60-1.20); Glomerular Filtration Rate 41 (60-); Glucose, Blood 80 mg/dL (70-99); Phosphorus, Blood 3.1 mg/dL (2.5-4.9); Potassium, Blood 3.2 mmol/L (3.5-5.5); Sodium, Blood 147 mmol/L (136-145)
--- NOTE | 2022-07-23 13:22 | NUR ---
Spoke with Dr Tiwari and discussed case. Dr Tiwari had conversation with family this AM in Pt's room and discussed goals of care. Family expressing frustration regarding recommendation of comfort care. Family would like to maintane current plan of care. Pt resting in bed. Pt A&OX2 and denies pain at this time. Pt appears dyspneic as evidenced of ability to speak in 2-3 word sentences only. Offered supportive visit. Asked Pt if he is in agreement with plan of care, Pt nods his head up and down indicating yes. Ended visit to allow Pt to rest. Spoke with Primary RN Carey and discussed case. Spoke with AIDA Marin and discussed case. Palliative Care will remain available
--- NOTE | 2022-07-23 15:13 | NUR ---
SPN SHIFT SUMMARY Pt CONTINUES TO BE LETHARGIC TODAY. SWALLOW STUDY DONE THIS AM AT 0745 BY SOSA, PUT ON PUREE DIET WITH NECTOR THICK LIQUIDS. PT GOT Pt UP TO RECLINER THIS ATERNOON A 2 PERSON ASSIST. PT SAID THAT PAITNET SHOULD BE A LIFT TO GET BACK TO BED. Pt HAD DURING TRANSFER HR JUMPED UP TO 150. MD ORDERED CHEST X-RAY THAT WAS DONE THIS AFTERNOON. CALL LIGHT IS WITH IN REACH, WILL CONTINUE TO PROVIDE CARE AND MONITOR.
--- NOTE | 2022-07-23 18:25 | NUR ---
SHIFT SUMMARY- PT IS ALERT, PLESANT AND COOPERATIVE. HE WORKED WITH PT THIS SHIFT AND TOLORATED WELL. HE HAS BEEN UP TO THE CHAIR MOST OF THIS SHIFT. FAMILY WAS AT BEDSIDE MOST OF THIS SHIFT. ST REEVALUATED THE PT AND ADVANCED HIM TO A PUREE DIET AND NECTAR THICK LIQUIDS. SPOKE WITH DR. SADLER ABOUT BRODY, SHE OK'D TO HOLD OFF ON REMOVING AT THIS TIME. SHE DISCUSSED COMFORT CARE WITH THE FAMILY AND PT THIS SHIFT. TEMITOPE FROM PALATIVE CARE SPOKE WITH FAMILY THIS SHIFT. FLUIDS ARE RUNNING AND ENCOURAGING PO FLUIDS.
[2022-07-24 05:43] LABS: BASOPHILS ABSOLUTE AUTO 0.05 K/mm3 (0.00-0.23); BASOPHILS PERCENT AUTO 1 % (0-2); EOSINOPHILS ABSOLUTE AUTO 0.45 K/mm3 (0.00-0.68); EOSINOPHILS PERCENT AUTO 5 % (0-6); Hematocrit 36.6 % (37.0-53.0); Hemoglobin 12.4 g/dL (13.5-17.5); IMMATURE GRAN ABSOLUTE AUTO 0.11 K/mm3 (0.00-0.10); IMMATURE GRAN PERCENT AUTO 1 % (0-1); LYMPHOCYTES ABSOLUTE AUTO 1.14 K/mm3 (0.84-5.20); LYMPHOCYTES PERCENT AUTO 12 % (21-46); MONOCYTES ABSOLUTE AUTO 0.79 K/mm3 (0.16-1.47); MONOCYTES PERCENT AUTO 8 % (4-13); Mean Corpuscular HGB 30.3 pg (26.0-34.0); Mean Corpuscular HGB Conc 33.9 g/dL (31.5-36.5); Mean Corpuscular Volume 90 fL (80-100); Mean Platelet Volume 9.8 fL (9.1-12.4); NEUTROPHILS ABSOLUTE AUTO 6.99 K/mm3 (1.96-9.15); NEUTROPHILS PERCENT AUTO 73 % (41-73); Platelet Count 223 K/mm3 (150-400); RDW Coefficient Variation 13.8 % (11.7-14.2); RDW Standard Deviation 44.9 fL (35.1-46.3); Red Blood Cell Count 4.09 M/mm3 (4.30-5.90); White Blood Cell Count 9.53 K/mm3 (4.00-11.30)
[2022-07-24 06:08] LABS: Anion Gap 2 mmol/L (6-16); Blood Urea Nitrogen 34 mg/dL (8-24); Bun/Creatinine Ratio 21.7 (12.0-20.0); CO2, Blood 30 mmol/L (21-32); Calcium, Blood 12.4 mg/dL (8.5-10.1); Chloride, Blood 115 mmol/L (98-108); Creatinine, Blood 1.57 mg/dL (0.60-1.20); Glomerular Filtration Rate 42 (60-); Glucose, Blood 149 mg/dL (70-99); Phosphorus, Blood 1.9 mg/dL (2.5-4.9); Potassium, Blood 3.3 mmol/L (3.5-5.5); Sodium, Blood 147 mmol/L (136-145)
--- NOTE | 2022-07-24 06:16 | NUR ---
TUTORING ASSISTANT SUMMARY NO ACUTE EVENTS. PT A/OX TO SELF. CONFUSED AND FORGETFUL. PT IS PLEASANT, COOPERATIVE AND EASILY REDIRECTABLE. PT WAKING INERMITTANTLY T/O THE NIGHT BUT RETURNS TO SLEEP EASILY. PERIODIC EPISODES OF DISORIENTATION AND PULLING OF CPAP IN THE NIGHT. RETURNED TO 02 NC APROX 0400. PT WILL NOT USE CALL LIGHT BUT WILL CALL OUT FROM THE BED WHEN HE NEEDS ASSISTANCE. PT VOICE IS WEAK AND DIFFICULT TO HEAR/UNDERSTAND. PT STARTED ON DW5/KCI 20 MEQ 100MLS/HR. PT TOLERATING MEDS CRUSHED IN APPLSAUCE.
[2022-07-24 11:10] LABS: M-SPIKE, % Not Observed % (Not Observed); PROTEIN,TOTAL,URINE 5.2 mg/dL (Not Estab.)
--- NOTE | 2022-07-24 18:26 | NUR ---
SHIFT SUMMARY PT A&O X 3. VSS. WAS ABLE TO WEAN DOWN HIS O2 TO 2 L'S WITH SATS REMAINING WELL ABOVE 90%. HUMIDIFIED HIS O2 FOR HIS COMFORT. PHYS THERAPY ATTEMPTED TO STAND PT, HOWEVER PT WAS TOO WEAK. (SEE PT NOTES). REPOSITIONED PT FREQUENTLY. F/C DRAINING YELLOW URINE. MEPIPLEX REMAINS ON PT'S COCCYX, IS C/D/I. FAMILY IN VISITING TODAY. UPDATED FAMILY. PLAN IS FOR REHAB UPON DC.
--- NOTE | 2022-07-25 04:21 | NUR ---
SHIFT SUMMARY PATIENT HAD NO ACUTE CHANGES. ALERT TO SELF WITH INCREASED CONFUSION T/O SHIFT PULLING GOWN OFF AND TELEMETRY LEADS OFF MULTIPLE TIMES. ALSO PULLING AT PIV AND HAD TO REPLACE. ON CAMERA D5 1/2 NS KCL INFUSING AT 100 mL/HR. MELATONIN 3 MG GIVEN WITH MODERATE EFFECT. SKINNER PATENT AND DRAINING TO GRAVITY. DENIES CHEST PAIN, SOB, AND N/V. VSS/AFEBRILE. CALL LIGHT IN REACH. BED IN LOWEST POSITION AND ALARM ON. WILL CONTINUE TO MONITOR UNTIL DAY SHIFT NURSE ASSUMES CARE.
[2022-07-25 05:29] LABS: BASOPHILS ABSOLUTE AUTO 0.06 K/mm3 (0.00-0.23); BASOPHILS PERCENT AUTO 1 % (0-2); EOSINOPHILS ABSOLUTE AUTO 0.71 K/mm3 (0.00-0.68); EOSINOPHILS PERCENT AUTO 7 % (0-6); Hemoglobin 12.8 g/dL (13.5-17.5); IMMATURE GRAN ABSOLUTE AUTO 0.13 K/mm3 (0.00-0.10); IMMATURE GRAN PERCENT AUTO 1 % (0-1); LYMPHOCYTES ABSOLUTE AUTO 1.32 K/mm3 (0.84-5.20); LYMPHOCYTES PERCENT AUTO 14 % (21-46); MONOCYTES ABSOLUTE AUTO 0.81 K/mm3 (0.16-1.47); MONOCYTES PERCENT AUTO 8 % (4-13); Mean Corpuscular HGB 30.3 pg (26.0-34.0); Mean Corpuscular HGB Conc 33.7 g/dL (31.5-36.5); Mean Corpuscular Volume 90 fL (80-100); Mean Platelet Volume 9.8 fL (9.1-12.4); NEUTROPHILS PERCENT AUTO 69 % (41-73); Platelet Count 231 K/mm3 (150-400); RDW Coefficient Variation 13.5 % (11.7-14.2); RDW Standard Deviation 43.9 fL (35.1-46.3); Red Blood Cell Count 4.23 M/mm3 (4.30-5.90); White Blood Cell Count 9.73 K/mm3 (4.00-11.30)
[2022-07-25 06:25] LABS: Albumin, Blood 1.9 g/dL (3.4-5.0); Anion Gap 2 mmol/L (6-16); Blood Urea Nitrogen 29 mg/dL (8-24); CO2, Blood 32 mmol/L (21-32); Calcium, Blood 12.6 mg/dL (8.5-10.1); Chloride, Blood 110 mmol/L (98-108); Creatinine, Blood 1.45 mg/dL (0.60-1.20); Glomerular Filtration Rate 46 (60-); Glucose, Blood 131 mg/dL (70-99); Potassium, Blood 3.6 mmol/L (3.5-5.5); Sodium, Blood 144 mmol/L (136-145)
--- NOTE | 2022-07-25 16:38 | NUR ---
SHIFT SUMMARY PT RESTING QUIETLY AT START OF SHIFT. WOKE EASILY FOR CARE, BUT REPORTED THAT HE WAS TIRED TODAY. PT DID NOT WISH TO WORK WITH PT/OT TODAY. SEVERAL VISITORS THRU OUT THE DAY, BUT NOT MUCH INTERACTION WITH THEM. DR MURRAY IN TO SEE PT THIS AM; CONTINUE IVF'S AND LASIX. TELE D'C'D PER ORDERS. SPEECH IN TO SEE PT BEFORE BREAKFAST, BUT DID NOT MAKE ANY CHANGES. PT IS STILL CHOKING ON THICKENED LIQUIDS WHEN DRINKING, EVEN WITH ASSISTANCE. PT DECLINING TO EAT LUNCH. LUNGS T/O WITH FINE CRACKLES AND SCATTERED EXP WHEEZES IN RUL. SKINNER TO GRAVITY; PATENT AND DRAINING VERY CLEAR, PALE URINE. CATH CARE COMPLETE. MEPILEX TO BUTTOCKS C/D/I. PT REPOSITIONED THRU OUT SHIFT. LE'S ELEVATED WITH PILLOWS TO KEEP HEELS OFF BED. O2 DECREASED TO 1L WITH BIOX > 91%. FAMILY IN RM AT THIS TIME. BED ALARM ON FOR SAFETY. CALL LT IN REACH.
--- NOTE | 2022-07-26 04:08 | NUR ---
SHIFT SUMMARY PATIENT HAD NO ACUTE CHANGES. AXO X2 AND BEDREST. RT INCREASED OXYGEN FROM 2L TO 5L NC AT START OF SHIFT. USED CPAP FOR TWO THIRDS OF SHIFT BEFORE PULLING OFF A FEW TIMES CONFUSED. BACK ON 5L O2 NC STATING 96%. PIV REMAINS INTACT. D5 1/2 NS KCL INFUSING AT 100 mL/HR. SKINNER PATENT AND DRAINING TO GRAVITY. MEPILEX TO BUTTOCK C/D/I. VSS/AFEBRILE. DENIES CHEST PAIN, SOB, AND N/V. SLEPT MOST OF SHIFT. CALL LIGHT IN REACH. BED IN LOWEST POSITION AND ALARM ACTIVATED. WILL CONTINUE TO MONITOR UNTIL DAY SHIFT NURSE ASSUMES CARE.
[2022-07-26 05:17] LABS: Bun/Creatinine Ratio 16.4 (12.0-20.0); Calcium, Blood 12.4 mg/dL (8.5-10.1); Creatinine, Blood 1.4 mg/dL (0.60-1.20); Potassium, Blood 4.1 mmol/L (3.5-5.5)
--- NOTE | 2022-07-26 15:15 | NUR ---
SHIFT SUMMARY PT RESTING QUIETLY AT START OF SHIFT. WOKE FOR CARE AND ASSISTED TO CHAIR AT BS, VIA SIT TO STAND LIFT, FOR BREAKFAST. PT REMAINED IN CHAIR UNTIL AFTER LUNCH AND THEN ASSISTED BACK INTO BED VIA SIT TO STAND LIFT. PT IS VERY WEAK AND DECONDITIONED. REPORTED FEELING MISERABLE AND WANTING TO GO HOME, BUT NEEDING CARE HE WAS LIVING ALONE. ATE WELL FOR BREAKFAST, BUT NOT SO WELL FOR LUNCH. FAMILY IN THIS AFTERNOON FOR A WHILE, NOW GONE HOME. DRSG TO ROBERTO CARLOS CHANGED. DENIED FURTHER NEEDS. RESTING QUIETLY AT THIS TIME. CALL LT IN REACH.
--- NOTE | 2022-07-27 04:50 | NUR ---
SHIFT SUMMARY PATIENT HAD NO ACUTE CHANGES. AXOX 2 AND BEDREST. ON 2L O2 NC STATING 94% ON CONTINUOUS PULSE OXIMETRY. PIV REMAINS INTACT. D5 1/2 NS KCL INFUSING AT 100 mL/HR. PATIENT PULLED SKINNER CATH OUT REPORTING DOES NOT WANT IT IN ANY LONGER. TAKES MEDS CRUSHED IN APPLESAUCE. MELATONIN 3 MG GIVEN FOR INSOMNIA. DENIES CHEST PAIN, SOB, AND N/V. CALL LIGHT IN REACH. BED IN LOWEST POSITION. WILL CONTINUE TO MONITOR UNTIL DAY SHIFT NURSE ASSUMES CARE.
[2022-07-27 05:22] LABS: Magnesium, Blood 1.9 mg/dL (1.6-2.4)
[2022-07-27 05:32] LABS: Bun/Creatinine Ratio 16.4 (12.0-20.0); Creatinine, Blood 1.46 mg/dL (0.60-1.20); Potassium, Blood 4.4 mmol/L (3.5-5.5)
[2022-07-27 05:34] LABS: Calcium, Blood 13.2 mg/dL (8.5-10.1)
--- NOTE | 2022-07-27 06:17 | NUR ---
CALCIUM 13.[address] RIZVI NOTIFIED WITH NO NEW ORDERS.
--- NOTE | 2022-07-27 09:56 | NUR ---
REFUSAL OF CARE-ASKING TO PT REFUSING MOST CARE. REFUSED HIS ORAL MEDICATIONS THIS AM. PT REFUSING TO GET OUT OF BED OR WORK WITH THERAPY. PT HAS VERBALIZED MANY TIMES TO THIS RN THAT HE IS DNR AND WANTS TO BE LEFT ALONE SO HE CAN . THIS WAS RELAYED TO DR. MURRAY AND PALLIATIVE CARE.
--- NOTE | 2022-07-27 15:42 | NUR ---
DIFFICULTY BREATHING PT STATES HE IS HAVING DIFFICULTY BREATHING, BUT IS SATING INTHE 90S ON 1L O2 VIA NC. RT CALLED FOR TREATMENT. DR. MURRAY NOTIFIED THAT THE PT REFUSED HIS AM LASIX. 1800 DOSE ORDERED TO BE GIVEN NOW. AND SECOND DOSE ORDERED FOR 2099.
--- NOTE | 2022-07-27 17:12 | NUR ---
Care Conference: Met with pt's daughter Claudine by phone today to discuss goals of care. According to Claudine, the patient's health has continued to decline since he was diagnosed with COPD, then with Covid Pneumonia. He continues to have a poor appetite, and wet cough. Pt has stated he does not want to live any longer without his who passed before him. His daughtert has instead talked with him about beginning an anti-depressant instead. However, the pt continues to struggle with quality vs quantity of life, and has continued to talk about "end of life". He denies depression. Pt's daughter states she is going to come visit today, and will check in Palliative Care tomorrow. Palliaitive Care to remain available. Met with pt's daughter Claudine today by phone. and she reports the pt's lauren has been declining over the perlllllllllllllllllllllllllllllllllllllllllllllllllllllllllllllllllllllllllreza p
--- NOTE | 2022-07-27 17:28 | NUR ---
SHIFT SUMMARY PT CONVEYING THAT HE "JUST WANT TO " THIS AM. THIS AFTERNOON, PT MORE ALERT AND STATING THAT HE WANTS TO WAIT UNTIL HIS BIRTHDAY IN AUGUST TO . O2 INCREASED TO 3L VIA NC FOR COMFORT. O2 TUBING TAPED TO FACE TO HELP PREVENT FURTHER BREAKDOWN FROM THE SEPTUM OF THE NOSE. PT MORE ORIENTED THIS AFTERNOON BY FORGETFUL ABOUT YESTERDAY AND EVENTS THIS AM. SPEAKING CLEARER AND LESS MUMBLING THIS EVENING. HYPOTENSION WITH A SBP IN THE 70S FOR AFTERNOON VITALS. 500CC BOLUS ORDERED AFTER SPEAKING TO DR. MURRAY ABOUT THIS. SBP INCREASED TO THE 90S. PT DENIES DIZZINESS T/O EVENTS. PT VOIDING LARGE VOLUMES INCONTINETELY. PT REFUSED AM MEDS BUT AGREEABLE TO TAKING MEDS LATER IN THE SHIFT. AFTERNOON LASIX DOSE GIVEN EARLY TO HELP WITH EDEMA AND SECOND DOSE REORDERED TO GIVEN AT [address] MURRAY. FAMILY IN ROOM. CALL LIGHT IN REACH. DENIES OTHER NEEDS AT THIS TIME. CALL LIGHT IN REACH.
--- NOTE | 2022-07-28 05:47 | NUR ---
SUMMARY: PT A/O TO SELF, FAMILY AND "HOSPITAL". HE'S [place] AND SPEAKS IN SOFT MUMBLED SPEECH BUT WAS ABLE TO SPECIFY MANY NEEDS. HE DID AWAKE DISORIENTED/ CONFUSED NEEDING REMINDERS PRN. BED ALARM ON FOR FALL RISK. TURN SCHEDULE MAINTAINED AND ATTENDS CHANGED PRN FOR URINARY AND MEDIUM FORMED STOOL INCONTINENCE. MEPILEX TO COCCYX REPLACED AND REMAINS C/D/I. D5 1/2 NS W/20MEQ KCL INFUSES PER EMAR. BLE'S REMAIN EDEMATOUS W/PO LASIX RECEIVED RX'D. PT ON 3-4L NC WA AND HAD O2 BLEED IN VIA CPAP WHILE SLEEPING, CONT BIOX INTACT AND SPO2 WNL. COURSE LS AND BREATHING TX RECEIVED PER RT FOR WHEEZES. PT HAS HX AFIB W/HR 90'S-100'S BPM. DBP ELEVATED AT HS BUT LASIX WAS RECEIVED FOR IMPROVEMENT IN BP. TYLENOL PROVIDED PRN FOR RELIEF OF "EVERYWHERE" PAIN. NO ACUTE CHANGES. WCTM AND REPORT TO DAY RN.
[2022-07-28 06:03] LABS: Albumin, Blood 1.9 g/dL (3.4-5.0); Anion Gap 2 mmol/L (6-16); Blood Urea Nitrogen 23 mg/dL (8-24); Bun/Creatinine Ratio 15.3 (12.0-20.0); CO2, Blood 31 mmol/L (21-32); Calcium, Blood 11.7 mg/dL (8.5-10.1); Chloride, Blood 105 mmol/L (98-108); Glomerular Filtration Rate 44 (60-); Glucose, Blood 108 mg/dL (70-99); Phosphorus, Blood 2.5 mg/dL (2.5-4.9); Potassium, Blood 4.3 mmol/L (3.5-5.5); Sodium, Blood 138 mmol/L (136-145)
[2022-07-28 08:25] LABS: Free Thyroxine 1.03 ng/dL (0.70-1.60)
[2022-07-28 08:28] LABS: Thyroid Stimulating Hormone 12.7 uIU/mL (0.360-4.800); Triiodothyronine, Free 1.2 pg/mL (2.18-3.98)
--- NOTE | 2022-07-28 11:46 | NUR ---
TRANSITION TO COMFORT CARE. PT SBP IN THE 70S AT 1050 TODAY. PT SOMULENT BUT WILL WAKE PAINFUL STIMULI. DR. MURRAY NOTIFIED AND 1L NS BOLUS ORDERED. PT PLACED BACK IN CPAP TO HELP WITH APNEA AT THIS TIME WELL. WHEN THE BOLUS WAS NURSING HOME THROUGH BP WAS RECHECKED AND WAS 66/51. DAUGHTER IN ROOM FOR THIS. DR. MURRAY NOTIFIED AND ORDERED TO TRANSFER TO ICU AND START LEVOPHED DRIP. PTS DAUGHTER STATED THIS IS NOT WHAT THE PT WANTS AND ASKED FOR US TO START COMFORT CARE. DR. DENNEY IN ROOM AND AGREED TO THIS ORDER. COMFORT CARE STARTED AND PT MEDICATED WITH ROXANOL FOR AIR HUNGER. FAMILY IN ROOM. PASTORAL CARE CURRENTLY AT BEDSIDE. CPAP REMOVED, IV FLUIDS STOPPED, TELE AND CONT PULSE OX REMOVED.
--- NOTE | 2022-07-28 11:55 | NUR ---
Pt's daughter at bedside, she agreed to comfort care this morning, as pt has continued to c/o SOB, being "exhausted", and stating he wants to go home, and/or wants to be with his . Planned to place ethics consult this am had this not resolved, but we are now following pt's wishes. Pt had another episode of hypotension this am, and required another fluid bolus. He also continues to have a weak, wet cough. Pt's daughter is tearful, but does state she understands the pt does not wish to continue in his current state.
--- NOTE | 2022-07-28 13:27 | NUR ---
Spiritual care visit conducted. Patient is just placed on comfort care. Dtr Daisy and grandraheem Duran and his Fiance are bedside. Patient is tearful at times and fully aware of all conversation although he does not speak much. He answers all questions with short answers. family talk at length about the generous kind heart that the patient possesses and also his fiery tongue. 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 THey share about the of his spouse in 2016 and how he has lost much drive and cherelle since then. They are confident of the choice of going to comfort care status because of his stated wishes along with his declining medications and even food and water. 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 Patient is tearful during the end of life (last rights) type of prayer and said "amen" and then "thank you" at the conclusion of the prayer. Family were very emotional after the prayer and Daisy had to excuse herself. I normalized their experience and provided a life review, therapeutic listening, anticipatory grief support and a calming presence. Patient and family responded well and showed signs of being comforted. I will cotninue to remain available to patient and family.
--- NOTE | 2022-07-28 16:38 | NUR ---
SHIFT SUMMARY PT TRANSITIONED TO COMFORT CARE THIS SHIFT. SEE PREVIOUS NOTES PRIOR. PT NOW RESTING COMFORTABLY ON 3L O2 VIA NC. MEDICATED WITH ROXANOL TO ASSIST WITH AIR HUNGER. SEE EMAR FOR ADMIN TIMES. FAMILY IN ROOM. IV REMOVED PER FAMILY REQUEST. FAMILY DENIES NEEDS AT THIS TIME. PASTORAL CARE SAW THE PT TODAY. PT RESTING AND APPEARS COMFORTABLE AT THIS TIME.
--- NOTE | 2022-07-29 05:48 | NUR ---
PT SLEPT T/O NIGHT, DID AWAKEN WHEN TALKED TO, DENIED PAIN. REPOSITIONED FOR COMFORT.
--- NOTE | 2022-07-29 13:22 | NUR ---
Spiritual care visit conducted. Patient is aware of conversation and answers questions but struggles to communicate except for short sentences. He states that his family is most important to him along with his maria e in God. Patient's dtr Daisy is present and was explaining about the tensions in the family the pt. becomes tearful. Daisy asks pt a few questions about who he wants to have visit and who he does not want in the room. He states the specifics but is tearful and states "it is not my fault, I did everything I can" in talking about seperation with one of his sons. Patient is easily shifted to more positive topics and smiles when Daisy talks about his many strengths, the places he volunteers his time and the people that he has generously given finances and resources to. When the patient seemed particularly alert I provided prayer for him which again brought more tears. He voices appreciation for the prayer. Daisy seems to soften as we talk and states that feeling truly heard was meaningful to her. Therapeutic listening, gentle application counselor and a calming presence were received well with good results of increased peace in troubling times. I will continue to remain available to patient and family.
--- NOTE | 2022-07-29 15:32 | NUR ---
Team meeting to review Mr De Paz. Met with palliative care team and shelter case manager to review families stress with his cnages in condition. Pervious encounters with grandson have attemtpted to prepare him for his granfather having frequent up and downs in his condition due to covid and thyroid and parathroid disorders and probable dementia coming on. Spoke with docotor about possible [facility] covid effects, Physician reviewed his copd. Will continue to support pt and family and review possible diagnositic to get pt best plan of care for his needs. Pt emotionally presents as failure to thrive and griving his loss of ability to drive and function. cahplian involved grandson is having complex grief.
--- NOTE | 2022-07-29 18:19 | NUR ---
SPN SHIFT SUMMARY Pt SLEEPING AND RESTING COMOFRTABLY TODAY, ASSESSED PAIN Pt DECLINED PAIN TODAY. ALL MEDS WERE GIVEN TODAY. Pt WAS VISITED BY FAMILY TODAY AND SPIRITAL ADVISOR. Pt WAS SEEN CRYING TONIGHT AT [facility], Pt STATED HE WANTS TO GO BE WITH GIULIA. Pt FAMILY KANDACE Pt DOG IN TO VISIT THIS EVENING, Pt WAS SEEN CRYING BUT SAID HE WAS HAPPY TO HIS DOG. Pt STILL DENIES PAIN, CALL LIGHT IS IN REACH, WILL CONTIUE TO MONITOR AND PROVIDE CARE.
--- NOTE | 2022-07-30 06:33 | NUR ---
PT SLEPT WELL, Q 2HR TURNS AND CHANGING OF ATTENDS. PT CONTINUES TO PULL OXYGEN OFF, ATTEMPT TO REPLACE MULTIPLE TIMES WITH IRRITATION TO PT.
--- NOTE | 2022-07-30 11:39 | NUR ---
COMFORT CARE PT IS AROUSABLE BY VOICE. PRODUCTIVE COUGH. ORAL CARE AND SUCTION Q 2HRS. PT BECAME TEARFUL AND ASKED FOR SPIRITUAL CONSULT. PASTORAL CARE AT BEDSIDE.
[2022-07-30 12:06] LABS: SARS-Cov-2 (COVID-19) PCR, MMC Positive (NEGATIVE)
[2022-07-30] MEDS ORDERED: ATROPINE SULFATE2 M1 SL (12:15)
[2022-07-30] MEDS ORDERED: LORA2 PO (12:18)
[2022-07-30] MEDS ORDERED: MELA3 PO (12:19)
[2022-07-30] MEDS ORDERED: MORP20L SL (12:21)
[2022-07-30] MEDS ORDERED: TRANSDERM-SCOP1 EA13 TD (12:24)
[2022-07-30 12:43] LABS: SARS-Cov-2 (COVID-19) Antigen Negative (NEGATIVE)
--- NOTE | 2022-07-30 13:17 | NUR ---
Spiritual care visit conducted. Upon responding to a request for spiritual care from the patient, I visited with the patient. Patient is surprisingly alert and talkative. He is very tearful and is asking for forgiveness. He tells me about the tensions with his ex-spouse (who is now ), his grown son's and step son and with his own poor choices in life. He also tells me about his concerns for his children and grandchildren's spiritual deficits. I provide a last rights type of prayer declaring his forgiveness based on the the of [place] on the cross. I also pray for his children and grandchildren to know and follow God. I speak to patient about these issues based on the maria e tradition that he ascribes to. Patient showed signs of catharsis and an increased peace.
--- NOTE | 2022-07-30 16:33 | NUR ---
PT DISCHARGED TO HOSPICE FACILITY PT ALERT AND ORIENTED X4. 2L NC. TAKEN BY MEG.
== END 2022-07-30 13:35 | disposition hospice, home (50) | DRG 177 ==
LOC: ER 17:52 → MEDS 17:53 → PCU 07-18 04:51 → MEDS 07-18 14:47 → ICUE 07-18 14:47 → MEDS 07-20 15:06
PROVIDERS: Family Medicine; Internal Medicine Nephrology; Student in an Organized Health Care Education/Training Program; ADMIT Internal Medicine
PROC: 02HV33Z Insertion of Infusion Device into Superior Vena Cava, Percutaneous Approach (ICD-10-PCS; principal; 2022-07-19)
DX: U07.1 COVID-19 (principal); G92.8 Other toxic encephalopathy; I26.99 Other pulmonary embolism without acute cor pulmonale; I48.19 Other persistent atrial fibrillation; N17.9 Acute kidney failure, unspecified; J96.11 Chronic respiratory failure with hypoxia; E87.20 Acidosis, unspecified; E87.0 Hyperosmolality and hypernatremia; E44.0 Moderate protein-calorie malnutrition; Z51.5 Encounter for palliative care; Z66 Do not resuscitate; E83.52 Hypercalcemia; T45.2X5A Adverse effect of vitamins, initial encounter; G47.33 Obstructive sleep apnea (adult) (pediatric); J43.9 Emphysema, unspecified; Z68.26 Body mass index [BMI] 26.0-26.9, adult; E87.6 Hypokalemia; E83.39 Other disorders of phosphorus metabolism; E88.09 Other disorders of plasma-protein metabolism, not elsewhere classified; Z28.21 Immunization not carried out because of patient refusal; D63.1 Anemia in chronic kidney disease; I95.9 Hypotension, unspecified; R00.1 Bradycardia, unspecified; N40.0 Benign prostatic hyperplasia without lower urinary tract symptoms; D72.828 Other elevated white blood cell count; I12.9 Hypertensive chronic kidney disease with stage 1 through stage 4 chronic kidney disease, or unspecified chronic kidney disease; N18.30 Chronic kidney disease, stage 3 unspecified; E86.0 Dehydration; E03.9 Hypothyroidism, unspecified; Z99.89 Dependence on other enabling machines and devices; Z86.16 Personal history of COVID-19; Z90.49 Acquired absence of other specified parts of digestive tract; Z88.8 Allergy status to other drugs, medicaments and biological substances; Z79.01 Long term (current) use of anticoagulants; Z79.51 Long term (current) use of inhaled steroids; Z79.52 Long term (current) use of systemic steroids; Z79.890 Hormone replacement therapy; Z79.899 Other long term (current) drug therapy
CPT/HCPCS: 0241U; 36415; 36569; 51702; 71045; 71260; 80048; 80053; 80069; 80162; 81001; 82397; 83605; 83735; 83880; 83970; 84145; 84156; 84165; 84166; 84439; 84443; 84481; 85025; 85520; 85610; 85730; 87040; 87426; 92526; 92610; 93005; 93010; 93306; 93970; 94640; 94660; 94760; 94762; 96375; 96376; 97110; 97110-CQ; 97162; 97530; 99285-25; A9270; C1751; C9803; G0378; J0461; J0630; J1644; J1940; J3480; J7030; J7040; J7060; Q9967; U0004